=== PATIENT | female | born 1990 | race Caucasian/White ===

== ENCOUNTER 2024-01-23 18:06 | Emergency (ER) | payer MEDICAID ==
[~2024-01-23] VITALS: Ht 154.9 cm; Wt 57.0 kg
[2024-01-23 18:12] VITALS: BP 157/113; PULSE 94; RESP 18; TEMP 97.4; O2SAT 100
[2024-01-23] MEDS: KETOROLAC 30MG/ML VIAL IM ONE (20:00)
[2024-01-23] MEDS: CYCLOBENZAPRINE 10MG TABLET PO ONE (20:00)
[2024-01-23] MEDS ORDERED: CYCL5TAB MT (21:23)
[2024-01-23] MEDS ORDERED: NAPR-1176 MT (21:23)
== END 2024-01-23 21:45 | disposition home or self-care (01) ==
LOC: ER 18:06
DX: S16.1XXA Strain of muscle, fascia and tendon at neck level, initial encounter (principal); S39.012A Strain of muscle, fascia and tendon of lower back, initial encounter; S20.219A Contusion of unspecified front wall of thorax, initial encounter; R07.89 Other chest pain; V49.59XA Passenger injured in collision with other motor vehicles in traffic accident, initial encounter; Y93.89 Activity, other specified; Y92.89 Other specified places as the place of occurrence of the external cause; Y99.8 Other external cause status
CPT/HCPCS: 99285; 72125; 71045; 81025; 72131; 96372; J1885